=== PATIENT | female | born 1945 | race Caucasian/White ===

== ENCOUNTER 2023-09-07 08:49 | Day surgery (SDC) | payer OTHER, SELFPAY ==
--- NOTE | 2023-09-07 09:54 | PM.HP.1 ---
History of Present Illness History of Present Illness Date Patient Seen: 09/07/23 Chief complaint: Colonoscopy Narrative: History of adenomatous colon polyps within 3 years need for follow-up colonoscopy. [facility] Medical History (Updated 09/07/23 @ 09:54 by Uma Clarke RN) DVT (deep venous thrombosis) (~2021) Renal cell cancer (~2023) Meds Home Medications and Allergies Home Medications Medication Instructions Recorded Confirmed Type Chlorthiladone 25 mg PO DAILY 09/07/23 09/07/23 History Losartan 100 mg PO DAILY 09/07/23 09/07/23 History Allergies Allergy/AdvReac Type Severity Reaction Status Date / Time hydrocortisone Allergy Severe Anaphylaxis Verified 09/07/23 09:52 dorzolamide Allergy Swelling Verified 09/07/23 09:52 of the Eye atorvastatin AdvReac Joint Pain Verified 09/07/23 09:52 chlorhexidine AdvReac Rash Verified 09/07/23 09:52 cyclobenzaprine AdvReac Verified 09/07/23 09:52 enalapril AdvReac Cough Verified 09/07/23 09:52 ofloxacin AdvReac Verified 09/07/23 09:52 Exam Narrative Exam Narrative: Oropharynx free of lesions Chest clear to auscultation percussion Cardiac exam reveals no S3 or murmur Assessment & Plan Assessment & Plan narrative: History of adenomatous colon polyps need for follow-up colonoscopy. Risks, benefits, alternatives have been explained.
--- NOTE | 2023-09-07 09:55 | PM.OP.COLON ---
Operative Date/Time/Diagnoses Date of procedure: 09/07/23 Pre-op diagnosis: See indication and findings Procedure & Clinicians Study performed: Colonoscopy Indications: History of adenomatous colon polyps Surgeon: Cortez De La Fuente Procedure Notes Procedure in detail: After informed consent was obtained the patient was placed in left lateral decubitus position. The video colonoscope was introduced to the rectum slowly advanced cecum. Preparation was good. On slow withdrawal mucosa was carefully examined. The scope was removed. The patient tolerated procedure well. Blood loss none Complications none Sedation mac Findings 1. Normal colonoscopy to cecum other with than rare scattered diverticula Patient does not need follow-up colonoscopy due to age.
[2023-09-07 10:08] VITALS: BP 132/75; PULSE 69; RESP 16; TEMP 36.3; O2SAT 98
[2023-09-07] MEDS: LACTATED RINGERS 1,000 ML 84 ML IV (10:16)
[2023-09-07 10:59] VITALS: BP 96/58; PULSE 67; RESP 14; TEMP 36.2; O2SAT 96
[2023-09-07 11:04] VITALS: BP 102/60; PULSE 67; RESP 15; O2SAT 94
[2023-09-07 11:09] VITALS: BP 115/58; PULSE 67; RESP 16; O2SAT 95
[2023-09-07 11:17] VITALS: BP 113/77; PULSE 65; RESP 16; O2SAT 98
== END 2023-09-07 11:30 | disposition home or self-care (01) ==
PROVIDERS: PCP Internal Medicine; Referring Provider Internal Medicine Gastroenterology; Visit Provider Internal Medicine Gastroenterology
PROC: 0DJD8ZZ Inspection of Lower Intestinal Tract, Via Natural or Artificial Opening Endoscopic (ICD-10-PCS; CPT 45378; principal; 2023-09-07 10:00)
DX: Z12.11 Encounter for screening for malignant neoplasm of colon (principal); Z86.010 Personal history of colon polyps; K57.30 Diverticulosis of large intestine without perforation or abscess without bleeding
CPT/HCPCS: 45378; J2704